=== PATIENT | male | born 1975 | race Caucasian/White ===

== ENCOUNTER 2019-01-18 00:42 | Inpatient (IN) | payer OTHER, MEDICAID ==
[~2019-01-18] VITALS: Ht 167.6 cm; Wt 78.0 kg
[2019-01-18] MEDS ORDERED: LORAZEPAM 2MG/ML CPJ ONE (01:05)
[2019-01-18 01:51] LABS: BASOPHILS % 0.4 % (0.0-2.0); EOSINOPHILS % 0.8 % (0.0-5.0); HEMATOCRIT. 44.1 % (42.0-52.0); HEMOGLOBIN. 14.4 g/dL (14.0-18.0); LYMPHOCYTES % 19.7 % (20.0-50.0); MEAN CORPUSCULAR HEMOGLOBIN 31.4 pg (28.0-32.0); MEAN CORPUSCULAR VOLUME 96.2 fL (80.0-94.0); MEAN PLATELET VOLUME 7.1 fl (7.4-10.4); MONOCYTES % 4.2 % (2.0-8.0); NEUTROPHILS % 74.9 % (40.0-76.0); PLATELET 256 x1000/uL (130-400); RED BLOOD CELL COUNT 4.58 mill/uL (4.7-6.1); RED CELL DISTRIBUTION WIDTH 13.9 % (11.6-14.6)
[2019-01-18 01:58] LABS: CHLORIDE 104 mEq/L (98-107)
[2019-01-18 02:03] LABS: ETHANOL BLOOD 16 mg/dL
[2019-01-18] MEDS ORDERED: SODIUM CHLORIDE 0.9% 1,000 ML IV ONE (02:08)
[2019-01-18 02:09] LABS: VALPROIC ACID < 3.0 ug/mL (50-100)
[2019-01-18] MEDS ORDERED: LORAZEPAM 2MG/ML CPJ IV ONE ×2 (02:15→03:30)
[2019-01-18] MEDS ORDERED: VALPROIC ACID 250MG CAPSULE PO ONE (03:00)
[2019-01-18] MEDS ORDERED: PHENYTOIN SODIUM 1,000 MG in SODIUM CHLORIDE 0.9% 100 ML IV ONE (03:00)
[2019-01-18] MEDS ORDERED: ACETAMINOPHEN 650MG SUPP PR PRN (13:30)
[2019-01-18] MEDS ORDERED: ACETAMINOPHEN 325MG TABLET PO PRN (13:30)
[2019-01-18] MEDS ORDERED: ONDANSETRON HCL 4MG/2ML INJ IV PRN (13:30)
[2019-01-18] MEDS ORDERED: ENOXAPARIN 40MG/0.4ML SYR SUBCUT SCH (13:30)
[2019-01-18] MEDS ORDERED: MAGNESIUM/ALUMINUM HYDROXIDE/SIMETHICONE 30ML UDC PO PRN (13:30)
[2019-01-18] MEDS ORDERED: GUAIFENESIN 200MG/10ML SUGAR FREE UDC PO PRN (13:30)
[2019-01-18] MEDS ORDERED: LORAZEPAM 0.5MG TABLET PO PRN (13:30)
[2019-01-18] MEDS ORDERED: IPRATROPIUM/ALBUTEROL 0.5-3(2.5)MG/3ML NEB INH PRN (13:30)
[2019-01-18] MEDS ORDERED: DIPHENHYDRAMINE 50MG/ML VIAL IV PRN (13:30)
[2019-01-18] MEDS ORDERED: ACETAMINOPHEN 650MG/20.3ML UDC GT PRN (13:30)
[2019-01-18] MEDS: SODIUM CHLORIDE 0.9% INJ 3ML FLUSH IVF SCH ×2 (14:00→23:25)
[2019-01-18] MEDS: CLONIDINE 0.1MG TABLET PO PRN (19:07)
[2019-01-18] MEDS: LEVETIRACETAM 500MG TABLET PO SCH ×2 (19:07→21:00)
[2019-01-18] MEDS ORDERED: NA PHOS,M-B/NA PHOS,DI-BA ENEMA 118ML PR PRN (21:00)
[2019-01-18 23:00] VITALS: BP 152/110
[2019-01-18] MEDS: HYDROCODONE/ACETAMINOPHEN 5/325MG TABLET PO PRN (23:24)
[2019-01-18] MEDS: METOPROLOL TARTRATE 25MG TABLET PO SCH (23:25)
[2019-01-19] VITALS: BP 152/110
[2019-01-19] MEDS ORDERED: lopressor PO (01:18)
[2019-01-19 04:00] VITALS: BP 146/105
[2019-01-19 07:11] LABS: BASOPHILS % 0.2 % (0.0-2.0); EOSINOPHILS % 0.2 % (0.0-5.0); HEMATOCRIT. 40.3 % (42.0-52.0); HEMOGLOBIN. 13.9 g/dL (14.0-18.0); LYMPHOCYTES % 11.4 % (20.0-50.0); MEAN CORPUSCULAR HEMOGLOBIN 31.9 pg (28.0-32.0); MEAN CORPUSCULAR VOLUME 92.4 fL (80.0-94.0); MEAN PLATELET VOLUME 7.4 fl (7.4-10.4); MONOCYTES % 8.4 % (2.0-8.0); NEUTROPHILS % 79.8 % (40.0-76.0); PLATELET 168 x1000/uL (130-400); RED BLOOD CELL COUNT 4.36 mill/uL (4.7-6.1); RED CELL DISTRIBUTION WIDTH 13.8 % (11.6-14.6)
[2019-01-19] MEDS ORDERED: KEPP500 MT (07:26)
[2019-01-19 07:35] LABS: CHLORIDE 102 mEq/L (98-107)
[2019-01-19 07:45] LABS: HDL CHOLESTEROL 102 mg/dL (40-59); LDL CHOLESTEROL 72 mg/dL (5-100)
[2019-01-19 08:00] VITALS: BP 158/105
[2019-01-19] MEDS: FOLIC ACID 1MG TABLET PO SCH (08:20)
[2019-01-19] MEDS: LEVETIRACETAM 500MG TABLET PO SCH ×2 (08:20→21:05)
[2019-01-19] MEDS: METOPROLOL TARTRATE 25MG TABLET PO SCH ×2 (08:21→21:05)
[2019-01-19] MEDS: HYDROCODONE/ACETAMINOPHEN 5/325MG TABLET PO PRN (08:21)
[2019-01-19] MEDS: THIAMINE HCL 100MG TABLET PO SCH (08:21)
[2019-01-19] MEDS: ENOXAPARIN 40MG/0.4ML SYR SUBCUT SCH (08:23)
[2019-01-19 10:12] LABS: *AMPHETAMINES SCREEN URINE NEGATIVE (NEGATIVE); *BARBITURATES SCREEN URINE NEGATIVE (NEGATIVE); *BENZODIAZEPINES SCREEN URINE NEGATIVE (NEGATIVE); *COCAINE SCREEN URINE NEGATIVE (NEGATIVE); CANNABINOID URINE SCREEN NEGATIVE (NEGATIVE); METHADONE URINE SCREEN NEGATIVE (NEGATIVE); PHENCYCLIDINE URINE SCREEN NEGATIVE (NEGATIVE)
[2019-01-19 10:14] LABS: OPIATES URINE SCREEN PRESUMTIVE POSITIVE (NEGATIVE)
[2019-01-19] MEDS ORDERED: POTASSIUM CHLORIDE 20MEQ TABLET SR PO SCH (10:15)
[2019-01-19 12:00] VITALS: BP 147/108
[2019-01-19] MEDS ORDERED: INFLUENZA VIRUS VACCINE(AFLURIA) 0.5ML SYR IM ONE (12:00)
[2019-01-19] MEDS: HYDROCODONE/ACETAMINOPHEN 10/325MG TABLET PO PRN ×2 (14:39→21:06)
[2019-01-19 16:00] VITALS: BP 141/98
[2019-01-19 20:17] VITALS: BP 152/103
[2019-01-19] MEDS: SODIUM CHLORIDE 0.9% INJ 3ML FLUSH IVF SCH (21:51)
[2019-01-20 00:10] VITALS: BP 157/106
[2019-01-20 03:25] LABS: CLARITY URINE CLEAR (CLEAR); COLOR URINE YELLOW (YELLOW); KETONES URINE NEGATIVE (NEGATIVE); LEUKOCYTE ESTERASE URINE NEGATIVE (NEGATIVE); NITRITE URINE NEGATIVE (NEGATIVE); OCCULT BLOOD URINE TRACE (NEGATIVE); PROTEIN URINE NEGATIVE (NEGATIVE); SPECIFIC GRAVITY URINE 1.013 (1.005-1.030); UROBILINOGEN URINE 0.2 E.U./dL (0.2-1.0)
[2019-01-20] MEDS: HYDROCODONE/ACETAMINOPHEN 10/325MG TABLET PO PRN ×3 (03:57→20:49)
[2019-01-20] MEDS: CLONIDINE 0.1MG TABLET PO PRN ×2 (03:58→20:48)
[2019-01-20 04:00] VITALS: BP 157/109
[2019-01-20] MEDS: SODIUM CHLORIDE 0.9% INJ 3ML FLUSH IVF SCH ×2 (06:37→14:00)
[2019-01-20 08:00] VITALS: BP 134/91
[2019-01-20] MEDS: METOPROLOL TARTRATE 25MG TABLET PO SCH (08:38)
[2019-01-20] MEDS: THIAMINE HCL 100MG TABLET PO SCH (08:38)
[2019-01-20] MEDS: FOLIC ACID 1MG TABLET PO SCH (08:38)
[2019-01-20] MEDS: LEVETIRACETAM 500MG TABLET PO SCH ×2 (08:39→20:48)
[2019-01-20] MEDS: ENOXAPARIN 40MG/0.4ML SYR SUBCUT SCH (08:39)
[2019-01-20 12:00] VITALS: BP 145/100
[2019-01-20] MEDS ORDERED: POTASSIUM CHLORIDE 20MEQ TABLET SR PO PRN (14:30)
[2019-01-20] MEDS: HYDROCODONE/ACETAMINOPHEN 5/325MG TABLET PO PRN (15:10)
[2019-01-20 16:00] VITALS: BP 154/103
[2019-01-20 18:50] LABS: BASOPHILS % 0.3 % (0.0-2.0); EOSINOPHILS % 0.6 % (0.0-5.0); HEMATOCRIT. 39.5 % (42.0-52.0); HEMOGLOBIN. 13.3 g/dL (14.0-18.0); LYMPHOCYTES % 16.1 % (20.0-50.0); MEAN CORPUSCULAR HEMOGLOBIN 30.9 pg (28.0-32.0); MEAN CORPUSCULAR VOLUME 92.2 fL (80.0-94.0); MEAN PLATELET VOLUME 7.4 fl (7.4-10.4); MONOCYTES % 9.1 % (2.0-8.0); NEUTROPHILS % 73.9 % (40.0-76.0); PLATELET 166 x1000/uL (130-400); RED BLOOD CELL COUNT 4.29 mill/uL (4.7-6.1); RED CELL DISTRIBUTION WIDTH 13.9 % (11.6-14.6)
[2019-01-20 18:55] LABS: CHLORIDE 100 mEq/L (98-107)
[2019-01-20 20:29] VITALS: BP 165/111
[2019-01-20] MEDS: METOPROLOL TARTRATE 50MG TABLET PO SCH (20:48)
[2019-01-21 00:34] VITALS: BP 144/98
[2019-01-21 04:42] VITALS: BP 140/93
[2019-01-21] MEDS: SODIUM CHLORIDE 0.9% INJ 3ML FLUSH IVF SCH ×2 (06:13→14:49)
[2019-01-21 08:00] VITALS: BP 147/98
[2019-01-21] MEDS: ENOXAPARIN 40MG/0.4ML SYR SUBCUT SCH (09:01)
[2019-01-21] MEDS: METOPROLOL TARTRATE 50MG TABLET PO SCH (09:02)
[2019-01-21] MEDS: THIAMINE HCL 100MG TABLET PO SCH (09:02)
[2019-01-21] MEDS: FOLIC ACID 1MG TABLET PO SCH (09:02)
[2019-01-21] MEDS: LEVETIRACETAM 500MG TABLET PO SCH (09:03)
[2019-01-21] MEDS: HYDROCODONE/ACETAMINOPHEN 10/325MG TABLET PO PRN (09:03)
[2019-01-21 12:00] VITALS: BP 148/98
[2019-01-21 15:05] VITALS: BP 148/98
[2019-01-21 15:56] VITALS: BP 145/97
== END 2019-01-21 19:30 | disposition short-term general hospital (02) | DRG 342 ==
LOC: ER 00:42 → 7WST 05:24 → EDBEDREQ 05:24 → EDBEDREQTM 05:24 → ENRESERV 22:01 → 6WST 01-19 07:51
PROVIDERS: ADMIT Family Medicine; ATTEND Family Medicine
DX: S42.291A Other displaced fracture of upper end of right humerus, initial encounter for closed fracture (principal); G93.41 Metabolic encephalopathy; G40.409 Other generalized epilepsy and epileptic syndromes, not intractable, without status epilepticus; F10.129 Alcohol abuse with intoxication, unspecified; I10 Essential (primary) hypertension; F17.210 Nicotine dependence, cigarettes, uncomplicated; F10.10 Alcohol abuse, uncomplicated; R73.9 Hyperglycemia, unspecified; X58.XXXA Exposure to other specified factors, initial encounter; Y93.89 Activity, other specified; Y92.89 Other specified places as the place of occurrence of the external cause; Y99.8 Other external cause status
CPT/HCPCS: 36415; 71045; 73030; 80061; 80165; 80185; 80305; 80320; 93005; 96365; 96366; 96375; 97162; 97535; 99285; J1165; J1200; J1650; J2060; J7030; J7050; G0480

== ENCOUNTER 2019-02-18 17:17 | Emergency (ER) | payer MEDICAID, OTHER ==
[~2019-02-18] VITALS: Ht 167.6 cm; Wt 73.0 kg
[~2019-02-18 17:17] MED LIST: KEPP500 MT; lopressor PO
[2019-02-18 20:49] VITALS: BP 149/89
== END 2019-02-18 20:56 | disposition home or self-care (01) ==
LOC: ER 17:17
DX: I10 Essential (primary) hypertension (principal); R56.9 Unspecified convulsions; Z98.890 Other specified postprocedural states
CPT/HCPCS: 99283

== ENCOUNTER 2019-06-05 21:08 | Emergency (ER) | payer SELFPAY ==
[~2019-06-05] VITALS: Ht 167.6 cm; Wt 82.0 kg
[2019-06-05] MEDS ORDERED: ALPRAZOLAM 0.5 MG TABLET PO ONE (23:30)
[2019-06-06] VITALS: BP 131/75
== END 2019-06-06 00:30 | disposition home or self-care (01) ==
LOC: ER 21:08
DX: F41.9 Anxiety disorder, unspecified (principal); R56.9 Unspecified convulsions; Z98.890 Other specified postprocedural states
CPT/HCPCS: 93005; 99283

== ENCOUNTER 2019-07-01 15:49 | Emergency (ER) | payer SELFPAY ==
[~2019-07-01] VITALS: Ht 170.2 cm; Wt 80.0 kg
[2019-07-01] MEDS ORDERED: SODIUM CHLORIDE 0.9% 1,000 ML IV ONE (16:18)
[2019-07-01] MEDS ORDERED: LEVETIRACETAM 1000MG/100ML 100 ML IV ONE (16:30)
[2019-07-01 18:09] LABS: BASOPHILS % 0.5 % (0.0-2.0); EOSINOPHILS % 0.5 % (0.0-5.0); HEMATOCRIT. 45.2 % (42.0-52.0); HEMOGLOBIN. 14.9 g/dL (14.0-18.0); LYMPHOCYTES % 30.1 % (20.0-50.0); MEAN CORPUSCULAR HEMOGLOBIN 28.7 pg (28.0-32.0); MEAN PLATELET VOLUME 7.6 fl (7.4-10.4); MONOCYTES % 9.3 % (2.0-8.0); NEUTROPHILS % 59.6 % (40.0-76.0); PLATELET 260 x1000/uL (130-400)
[2019-07-01 18:14] LABS: CHLORIDE 106 mEq/L (98-107)
[2019-07-01 18:29] LABS: ETHANOL BLOOD 319 mg/dL
[2019-07-01] MEDS ORDERED: KCL 20MEQ/100ML PREMIX 100 ML IV SCH (18:45)
[2019-07-01] MEDS ORDERED: POTASSIUM CHLORIDE 20MEQ TABLET SR PO NR (18:45)
[2019-07-01 19:42] LABS: CLARITY URINE CLEAR (CLEAR); COLOR URINE YELLOW (YELLOW); KETONES URINE NEGATIVE (NEGATIVE); LEUKOCYTE ESTERASE URINE NEGATIVE (NEGATIVE); NITRITE URINE NEGATIVE (NEGATIVE); OCCULT BLOOD URINE NEGATIVE (NEGATIVE); PROTEIN URINE 1+ (NEGATIVE); SPECIFIC GRAVITY URINE 1.015 (1.005-1.030); UROBILINOGEN URINE 0.2 E.U./dL (0.2-1.0)
[2019-07-01 19:51] LABS: *AMPHETAMINES SCREEN URINE NEGATIVE (NEGATIVE); *BARBITURATES SCREEN URINE NEGATIVE (NEGATIVE); *BENZODIAZEPINES SCREEN URINE PRESUMTIVE POSITIVE (NEGATIVE); *COCAINE SCREEN URINE NEGATIVE (NEGATIVE)
[2019-07-01 19:52] LABS: CANNABINOID URINE SCREEN NEGATIVE (NEGATIVE); METHADONE URINE SCREEN NEGATIVE (NEGATIVE); OPIATES URINE SCREEN NEGATIVE (NEGATIVE); PHENCYCLIDINE URINE SCREEN NEGATIVE (NEGATIVE)
[2019-07-01 20:31] VITALS: BP 137/101
== END 2019-07-01 21:05 | disposition left against medical advice (07) ==
LOC: ER 15:49
DX: F10.129 Alcohol abuse with intoxication, unspecified (principal); Y90.8 Blood alcohol level of 240 mg/100 ml or more; R56.9 Unspecified convulsions; E87.6 Hypokalemia; I10 Essential (primary) hypertension
CPT/HCPCS: 36415; 80053; 80305; 80320; 81003; 83735; 85025; 96365; 99283; J1953; J3480; J7030; Z7610; G0480